=== PATIENT | male | born 1990 | race Caucasian/White ===

== ENCOUNTER 2018-02-05 08:10 | Emergency (ER) | payer OTHER ==
[~2018-02-05] VITALS: Ht 167.6 cm; Wt 56.7 kg
[2018-02-05 08:17] VITALS: Ht 167.6 cm; Wt 56.7 kg
[2018-02-05] MEDS ORDERED: HYDROCODON-ACE1 EAC7 PO (09:22)
[2018-02-05 10:09] VITALS: BP 114/64
== END 2018-02-05 10:10 | disposition home or self-care (01) ==
LOC: D.ER 08:10
DX: M25.521 Pain in right elbow (principal); M25.531 Pain in right wrist; V43.52XA Car driver injured in collision with other type car in traffic accident, initial encounter; Y93.89 Activity, other specified; Y92.410 Unspecified street and highway as the place of occurrence of the external cause; F17.200 Nicotine dependence, unspecified, uncomplicated